=== PATIENT | female | born 1980 | race Caucasian/White ===

== ENCOUNTER 2024-10-09 13:14 | Emergency (ER) | payer OTHER, SELFPAY ==
[2024-10-09 13:21] VITALS: BP 152/79; PULSE 89; RESP 16; TEMP 36.9; O2SAT 98; BMI 32.9
--- NOTE | 2024-10-09 16:01 | DI.CT.S_ITS ---
PROCEDURE: CT HEAD/BRAIN WO CON INDICATIONS: headache, new onset TECHNIQUE: Noncontrast 4.5 mm thick angled axial sections acquired from the foramen magnum to the vertex, with coronal and sagittal reformats. For radiation dose reduction, the following was used: automated exposure control, adjustment of mA and/or kV according to patient size. COMPARISON: None. FINDINGS: Image quality: Diagnostic. CSF spaces: Basal cisterns are patent. No extra-axial fluid collections. Ventricles are normal in size and shape. Brain: No midline shift. No intracranial masses or hemorrhage. Mooney-white matter interface is normal. Skull and face: Calvarium and visualized facial bones are intact, without suspicious lesions. Sinuses: Mucosal thickening noted involving the maxillary, ethmoid, sphenoid and left frontal sinuses. No osseous wall thickening or remodeling. IMPRESSION: Unremarkable CT of the brain. Pansinusitis Approved by: Casey Youssef M.D. on 10/09/2024 at 15:30
--- NOTE | 2024-10-09 16:04 | ED.HA ---
HPI - Headache General Chief Complaint: Headache Stated Complaint: WORSENING HEADACHE T-7 Time Seen by Provider: 10/09/24 13:23 Mode of arrival: Ambulatory History of Present Illness HPI Narrative: This is a 43-year-old female who is previously healthy complaint of a headache for a week. It is associated with nausea she has not had fevers no weakness numbness no vomiting. No recent head trauma, the patient does not commonly have fevers. Takes no regular medications. Notes that her last menstrual period has lasted longer than usual says she has been bleeding for about 10 days. Related Data Previous Rx's Medication Instructions Recorded ondansetron 4 mg disintegrating 4 mg PO Q6H PRN nausea and 10/09/24 tablet vomiting #8 tabs Allergies Allergy/AdvReac Type Severity Reaction Status Date / Time No Known Drug Allergies Allergy Unverified 10/09/24 13:08 Exam Initial Vital Signs Initial Vital Signs: Vital Signs Temperature 98.4 F 10/09/24 13:21 Pulse Rate 89 10/09/24 13:21 Respiratory Rate 16 10/09/24 13:21 Blood Pressure 152/79 H 10/09/24 13:21 Pulse Oximetry 98 10/09/24 13:21 Oxygen Delivery Method Room Air 10/09/24 13:21 Const General: cooperative and No acute distress HENMT Head: normocephalic Mouth: moist mucous membranes Eyes Pupils: PERRL EOM: EOM intact bilaterally Neck Neck: supple Resp Effort & Inspection: normal respiratory effort Neuro General: patient alert, patient oriented x3 and moves all extremities Speech: speech normal Course Orders Ordered: ED Orders 10/09/24 16:01 CT head/brain wo con Stat Discontinued Medications Haloperidol (Haloperidol 5 Mg/Ml Vial) 2.5 mg IV NOW ONE Stop: 10/09/24 16:02 Last Admin: 10/09/24 16:12 Dose: 2.5 mg Documented By: TC Ketorolac Tromethamine (Ketorolac 30 Mg/Ml Vial) 15 mg IV NOW ONE Stop: 10/09/24 16:02 Last Admin: 10/09/24 16:14 Dose: 15 mg Documented By: TC Reevaluation(s) Reevaluation #1: Headache resolved with ketorolac and Haldol Vital Signs Vital signs: Vital Signs - 8 hr 10/09/24 13:21 04/06/25 16:54 Temperature 98.4 F 98.3 F Pulse Rate 89 83 Respiratory Rate 16 16 Blood Pressure 152/79 H 124/68 Pulse Oximetry 98 99 Oxygen Delivery Method Room Air Room Air MDM - Headache Imaging Data CT scan - head: My Impression: Independently reviewed CT head, no acute findings Radiologist's Impression: Radiology report, no acute intracranial abnormalities, pansinusitis MDM Narrative Medical decision making narrative: 43-year-old female with an acute headache. I considered but do not suspect hemorrhage, meningitis is not consistent with this presentation. She is neurologically intact, symptomatic treatment in the emergency department with ketorolac and Haldol was successful in treating the headache. There were some findings of sinusitis on CT, presentation does not suggest bacterial sinusitis but I did discuss symptomatic care for congestion including nasal steroid and decongestant. May use ibuprofen and acetaminophen as needed at home and I provided a prescription for ondansetron for as needed use. Discharge Plan Departure Patient Disposition: Home Clinical Impression: Headache Qualifiers: Headache type: unspecified Headache chronicity pattern: acute headache Intractability: not intractable Qualified Code(s): R51.9 - Headache, unspecified Instructions: DI for Headache Activity Restrictions/Additional Instructions: Emergency department workup today is reassuring. I do not think her headache is a result of anything dangerous and I am glad that you are feeling better. You can use Tylenol at usual [id number] doses and ibuprofen 600 mg every 6-8 hours as needed for pain. I sent a prescription for ondansetron that you can use as needed for nausea. On the CT scan there was some mention of sinusitis, this may be contributing to your symptoms I recommend trying a nasal steroid spray which is available [id number] without prescription and a nasal decongestant which you should only use for a couple of days. Prescriptions: New ondansetron 4 mg tablet,disintegrating 4 mg PO Q6H PRN (Reason: nausea and vomiting) Qty: 8 0RF Referrals: Miscellaneous,Doctor, [Primary Care Provider] - Stand Alone Forms: Patient Portal/API/Survey
[2024-10-09] MEDS: HALOPERIDOL 5 MG/ML VIAL 2.5 MG IV (16:12)
[2024-10-09] MEDS: KETOROLAC 30 MG/ML VIAL 15 MG IV (16:14)
[2024-10-09 16:54] VITALS: BP 124/68; PULSE 83; RESP 16; TEMP 36.8; O2SAT 99
== END 2024-10-09 17:05 | disposition home or self-care (01) ==
PROVIDERS: Emergency Provider Emergency Medicine
DX: R51.9 Headache, unspecified (principal); J32.9 Chronic sinusitis, unspecified; R11.0 Nausea
CPT/HCPCS: 36415; 70450; 96374; 96375; 99284; J1630; J1885